=== PATIENT | female | born 1975 | race Caucasian/White ===

== ENCOUNTER → 2018-09-19 | Outpatient (CLI) | payer BC ==
[2018-09-19 16:48] LABS: HCT 42.4 % (34.0-46.0); HGB 14.1 gm/dL (11.4-16.0); MCH 30.5 pg (25.0-35.0); MCHC 33.2 g/dL (31.0-37.0); MCV 91.8 fL (80.0-100.0); Mean Platelet Volume 8.7; Platelet Count 166 k/uL (150-450); RBC 4.62 m/uL (3.80-5.40); WBC 6.7 k/uL (3.8-10.6)
[2018-09-19 23:17] LABS: Hemoglobin A1C 5.3 % (4.0-6.0)
[2018-09-19 23:27] LABS: Iron Saturation 21.9 (12.00-45.00)
[2018-09-19 23:39] LABS: Folate, Serum 15.6 ng/mL; Vitamin D 25 Hydroxy 9.8 ng/mL (30.0-100.0)
[2018-09-19 23:46] LABS: ALT 35 U/L (8-44); AST 22 U/L (13-35); Alkaline Phosphatase 63 U/L (41-126); Calcium 9.1 mg/dL (8.7-10.3); Carbon Dioxide 23.3 mmol/L (21.6-31.8); Chloride 108 mmol/L (96-109); Cholesterol 220 mg/dL (0-200); Glucose 95 mg/dL (70-110); Sodium 139 mmol/L (135-145); Total Bilirubin 0.4 mg/dL (0.3-1.2); Total Protein 6.4 g/dL (6.2-8.2)
== END | disposition home or self-care (01) ==
LOC: BARWHC3 15:02
PROVIDERS: ATTEND Surgery Plastic and Reconstructive Surgery
DX: E66.01 Morbid (severe) obesity due to excess calories (principal); E88.81 Metabolic syndrome and other insulin resistance; E44.0 Moderate protein-calorie malnutrition; E55.9 Vitamin D deficiency, unspecified; I11.9 Hypertensive heart disease without heart failure; G47.30 Sleep apnea, unspecified
CPT/HCPCS: 80053; 80061; 82306; 82607; 82728; 82746; 83036; 83540; 83550; 83721; 84425; 84443; 85027; 93005

== ENCOUNTER → 2018-10-23 | Outpatient (CLI) | payer BC ==
--- NOTE | 2018-10-23 16:19 | P.HPBAR ---
Bariatric H&P - History & Physicial H&P Date: 10/23/18 History & Physicial: Visit/CC: Patient initial contact: Initial weight: Initial weight in pounds: Height: Initial BMI: Last weight: Current weight: Current weight in pounds: Current BMI: [place] body weight (based on NIH guidelines): Excess body weight loss: The patient is a 42 year-old F who presents for Bariatric Assessment. HPI: Sleeve gastrectomy. Gallbladder is out. Omeprazole as needed for GERD. Family with obesity. She has family support. She has history pyloric stenosis and needed a stretch as least 3 times. MS: 1+ edema ASSESSMENT: 1. Morbid obesity PLAN: 1. Labs reviewed 2. EKG is normal 3. Psych 4. Sleeve gastrectomy. 5. She has completed 1 year supervised weight loss. 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 breast cancer 2013 History of Any Multi-Drug Resistant Organisms: None Reported Past Surgical History: Breast Surgery, Cholecystectomy, Hysterectomy Additional Past Surgical History / Comment(s): bilateral mammary duct removal 2013 removal of skin sarcoma lesion 2013 Past Anesthesia/Blood Transfusion Reactions: No Reported Reaction Past Psychological History: Anxiety Smoking Status: Former smoker Past Alcohol Use History: None Reported Additional Past Alcohol Use History / Comment(s): quit 13 years ago Past Drug Use History: None Reported Bariatric Checklist Checklist: Plan: Checklist: EGD: 1. Hiatal hernia: 2. H. Pylori: HgbA1c: Vitamin D: Smoking: Former smoker Primary care physician referral: Psychiatry clearance: Cardiology clearance: Sleep study: Diet journal: VTE risk score: VTE risk level: Rehab needs at discharge:
[2018-10-24 13:07] VITALS: BP 122/88; PULSE 101; RESP 16; TEMP 97.7; BMI 44.4
== END | disposition home or self-care (01) ==
LOC: BARWHC3 14:11
PROVIDERS: ATTEND Surgery Plastic and Reconstructive Surgery
DX: E66.01 Morbid (severe) obesity due to excess calories (principal); K21.9 Gastro-esophageal reflux disease without esophagitis; K31.1 Adult hypertrophic pyloric stenosis; Z90.49 Acquired absence of other specified parts of digestive tract; Z90.710 Acquired absence of both cervix and uterus; Z68.41 Body mass index [BMI] 40.0-44.9, adult
CPT/HCPCS: 99201

== ENCOUNTER 2018-12-23 14:48 | Day surgery (SDC) | payer BC ==
[2018-12-19 09:02] VITALS: BMI 42.7
--- NOTE | 2018-12-23 06:54 | P.GSHP ---
History of Present Illness H&P Date: 12/23/18 CHIEF COMPLAINT: GERD HISTORY OF PRESENT ILLNESS: The patient is a 43-year-old female who presents reports gastroesophageal reflux disease. Upper endoscopy was offered for further evaluation and management. PAST MEDICAL HISTORY: Please see list. PAST SURGICAL HISTORY: Please see list. MEDICATIONS: Please see list. ALLERGIES: Please see list. SOCIAL HISTORY: No illicit drug use FAMILY HISTORY: No reports of Crohn disease or ulcerative colitis. REVIEW OF ORGAN SYSTEMS: CONSTITUTIONAL: No reports of fevers or chills. GI: Denies any blood in stools or constipation. PHYSICAL EXAM: VITAL SIGNS: Stable GENERAL: Well-developed and pleasant in no acute distress. HEENT: No scleral icterus. Extraocular movements grossly intact. Moist buccal mucosa. NECK: Supple without lymphadenopathy. CHEST: Unlabored respirations. Equal bilateral excursions. CARDIOVASCULAR: Regular rate and rhythm. Distal 2+ pulses. ABDOMEN: Soft, nondistended. MUSCULOSKELETAL: No clubbing, cyanosis, or edema. ASSESSMENT: 1. Gastroesophageal reflux disease PLAN: 1. Recommend proceeding with an upper endoscopy Past Medical History Past Medical History: Asthma, Cancer, CVA/TIA, GERD/Reflux, Hypertension, Osteoarthritis (OA) Additional Past Medical History / Comment(s): tia , breast cancer 2013, skin cancer History of Any Multi-Drug Resistant Organisms: None Reported Past Surgical History: Breast Surgery, Section, Cholecystectomy, Hysterectomy Additional Past Surgical History / Comment(s): bilateral mammary duct removal 2013 removal of skin sarcoma lesionS Past Anesthesia/Blood Transfusion Reactions: No Reported Reaction Smoking Status: Former smoker - Past Family History Mother Family Medical History: No Reported History Medications and Allergies Allergies Allergy/AdvReac Type Severity Reaction Status Date / Time azithromycin Allergy Rash/Hives Verified 12/19/18 08:55 [From Zithromax Z-Samuel] milk Allergy Abdominal Verified 12/19/18 08:55 Pain Penicillins Allergy Anaphylaxis Verified 12/19/18 08:55
[~2018-12-23 14:48] MED LIST: LACTATED RINGERS 1,000 ML IV SCH
[2018-12-23 15:09] VITALS: RESP 16; TEMP 97.8
[2018-12-23] MEDS ORDERED: PROPOFOL 10 MG/ML 20 ML VIAL IV ONE (16:04)
--- NOTE | 2018-12-23 16:20 | P.PCN ---
Date of Procedure: 12/23/18 Description of Procedure: PREOPERATIVE DIAGNOSIS: Gastroesophageal reflux disease. Morbid obesity. POSTOPERATIVE DIAGNOSIS: Morbid obesity. Gastritis. Duodenitis Gastroesophageal reflux disease. Diaphragmatic hiatal hernia OPERATION: Esophagogastroduodenoscopy with biopsies along antrum and duodenum SURGEON: Maritza Proctor MD ANESTHESIA: MAC. INDICATIONS: The patient is a 43-year-old female who presents with a history of reflux disease. Benefits and risks of the procedure were described. Informed consent was obtained. DESCRIPTION: The patient was brought into the endoscopy suite and laid in the left lateral decubitus position. An Olympus gastroscope was passed along the posterior oropharynx down to the distal esophagus where the squamocolumnar junction was encountered at 35 cm from the incisors. The stomach was entered and no bile reflux was found. Additional findings are listed below. Biopsies with cold forceps were obtained of the antrum. The first through third portion of the duodenum was examined and unremarkable. Retroflexion of the scope confirmed Hill grade 4 lower esophageal valve. The squamocolumnar junction demonstrated LA grade B erosive esophagitis. The stomach was desufflated. The patient tolerated the procedure well. FINDINGS: Squamocolumnar junction 35 cm from the incisors. Diaphragmatic hiatus at 40 cm Hiatal hernia, 5 cm Hill grade 4 lower esophageal valve. LA grade B erosive esophagitis. No active duodenitis. Chronic gastritis with recent bleed RECOMMENDATIONS: Upper endoscopy as needed. Plan - Discharge Summary Discharge Rx Participant: No New Discharge Prescriptions: No Action Estrogens, Conjugated [Premarin] 0.625 mg PO DAILY Vitamin E 400 unit PO DAILY LORazepam [Ativan] 1 mg PO TID PRN PRN Reason: Anxiety Albuterol Inhaler [Ventolin Hfa Inhaler] 1 - 2 puff INHALATION RT-Q6H PRN PRN Reason: Bronchospasm Omeprazole [PriLOSEC] 20 mg PO AC-BID Lisinopril [Zestril] 10 mg PO BID Escitalopram [Lexapro] 20 mg PO DAILY Atorvastatin [Lipitor] 10 mg PO HS Zolpidem [Ambien] 5 mg PO HS PRN PRN Reason: Insomnia Cholecalciferol [Vitamin D3 (25 Mcg = 1000 Iu)] 1,000 unit PO DAILY Discharge Medication List Albuterol Inhaler [Ventolin Hfa Inhaler] 1 - 2 puff INHALATION RT-Q6H PRN 12/23/18 [History] Atorvastatin [Lipitor] 10 mg PO HS 12/23/18 [History] Cholecalciferol [Vitamin D3 (25 Mcg = 1000 Iu)] 1,000 unit PO DAILY 12/23/18 [History] Escitalopram [Lexapro] 20 mg PO DAILY 12/23/18 [History] Estrogens, Conjugated [Premarin] 0.625 mg PO DAILY 12/23/18 [History] LORazepam [Ativan] 1 mg PO TID PRN 12/23/18 [History] Lisinopril [Zestril] 10 mg PO BID 12/23/18 [History] Omeprazole [PriLOSEC] 20 mg PO AC-BID 12/23/18 [History] Vitamin E 400 unit PO DAILY 12/23/18 [History] Zolpidem [Ambien] 5 mg PO HS PRN 12/23/18 [History]
[2018-12-23 16:28] VITALS: BP 112/75; PULSE 67
== END 2018-12-23 16:39 | disposition home or self-care (01) ==
LOC: ORWHC2ENDO 14:48
PROVIDERS: ATTEND Surgery Plastic and Reconstructive Surgery
DX: K29.50 Unspecified chronic gastritis without bleeding (principal); K21.0 Gastro-esophageal reflux disease with esophagitis; K29.70 Gastritis, unspecified, without bleeding; K29.80 Duodenitis without bleeding; K44.9 Diaphragmatic hernia without obstruction or gangrene; J45.909 Unspecified asthma, uncomplicated; Z86.73 Personal history of transient ischemic attack (TIA), and cerebral infarction without residual deficits; E66.01 Morbid (severe) obesity due to excess calories; I10 Essential (primary) hypertension; M19.90 Unspecified osteoarthritis, unspecified site; Z85.3 Personal history of malignant neoplasm of breast; Z90.49 Acquired absence of other specified parts of digestive tract; Z87.891 Personal history of nicotine dependence; Z88.0 Allergy status to penicillin; Z88.1 Allergy status to other antibiotic agents; Z91.011 Allergy to milk products; E78.5 Hyperlipidemia, unspecified; Z79.899 Other long term (current) drug therapy; Z68.41 Body mass index [BMI] 40.0-44.9, adult
CPT/HCPCS: 88305; 43239; J2704

== ENCOUNTER → 2018-12-23 | Outpatient (CLI) | payer BC ==
[2018-12-23 13:44] VITALS: BMI 42.7
== END ==
LOC: BARWHC3 07:45
PROVIDERS: ATTEND Surgery Plastic and Reconstructive Surgery
DX: E66.01 Morbid (severe) obesity due to excess calories (principal)
CPT/HCPCS: 97804

== ENCOUNTER → 2019-02-12 | Outpatient (CLI) | payer BC ==
[2019-02-12 15:38] VITALS: BP 141/94; PULSE 72; RESP 16; TEMP 98.5; BMI 42.2
--- NOTE | 2019-02-12 16:12 | P.PN ---
Subjective Progress Note Date: 02/12/19 HPI: Highest 248 pounds. Over 12 pound weight loss. PCP is Dr. Ordonez is her PCP for 8 years. She has done well with maintained weight loss in 4+ months. She is very enthusiastic, involved in her weight loss. She is an excellent weight loss candidate. Benefits and risks of sleeve gastrectomy described. She does have recurrent pyloric stenosis, gastric bypass. The additional research regarding pyloric stenosis and sleeve gastrectomy. Printed case reports cited from [facility] "LAPAROSCOPIC SLEEVE GASTRECTOMY AFTER PREVIOUS PYLOROMYOTOMY FOR INFANTILE HYPERTROPHIC PYLORIC STENOSIS. CASE REPORT AND DISCUSSION OF [facility]AN[facility] Jarvis Juares MD, Reji Avilez MD, Pedrito Hedrick MD, Isacc Georges MD. [facility]" confirmed that sleeve gastrectomy feasible. I personally contacted the patient regarding the artcile. She is agreeable to proceed with a sleeve gastrectomy which was her procedure of choice. Patient will be scheduled for sleeve gastrectomy Objective - Vital Signs Vital signs: Vital Signs Temp 98.5 F 02/12/19 15:34 Pulse 72 02/12/19 15:34 Resp 16 02/12/19 15:34 BP 141/94 02/12/19 15:34 Pulse Ox Intake & Output 02/11/19 02/12/19 02/12/19 18:59 06:59 18:59 Weight 102.965 kg
== END ==
LOC: BARWHC3 14:51
PROVIDERS: ATTEND Surgery Plastic and Reconstructive Surgery
DX: K31.1 Adult hypertrophic pyloric stenosis (principal); Z98.84 Bariatric surgery status
CPT/HCPCS: 99211